=== PATIENT | male | born 1945 | race Two or more races ===

== ENCOUNTER 2017-07-22 17:56 | Inpatient (IN) | payer MEDICARE, OTHER ==
[~2017-07-22] VITALS: Ht 162.6 cm; Wt 109.0 kg
[2017-07-22] MEDS ORDERED: LIDOcaine 1% 30ml vial IJ STA (20:57)
[2017-07-22] MEDS ORDERED: TETanus/Pertussis (Acell)/Diphther VAC/PF (Tdap-Adult) 0.5ml syringe IM ONE (21:00)
[2017-07-22] MEDS ORDERED: cefazolin 1gm/NS 100mL 100 ML IV STA (21:24)
[2017-07-22] MEDS ORDERED: HYDROmorphone 2mg/ml vial IV PRN ×2 (21:55→23:05)
[2017-07-23] MEDS ORDERED: bacitracin 15gm ointment TP ONE (02:25)
[2017-07-23] MEDS ORDERED: ASPI81TA46 PO (02:47)
[2017-07-23] MEDS ORDERED: AMLO2.5T2 PO (02:47)
[2017-07-23] MEDS ORDERED: ENAL5TAB77 PO (02:47)
[2017-07-23] MEDS ORDERED: ATOR40TA PO (02:47)
[2017-07-23] MEDS ORDERED: METF500T PO (02:47)
[2017-07-23] MEDS ORDERED: CLOP75TA15 PO (02:47)
[2017-07-23] MEDS ORDERED: normal saline 1000ml 1,000 ML IV SCH (02:51)
[2017-07-23] MEDS ORDERED: magnesium 2GM in 50ml NS 50 ML IV PRN (02:55)
[2017-07-23] MEDS ORDERED: morphine 2 MG/ML inj. syringe IV PRN ×2 (02:55)
[2017-07-23] MEDS ORDERED: magnesium 4gm in 100ml NS 100 ML IV PRN (02:55)
[2017-07-23] MEDS ORDERED: potassium Cl 20 mEq SR tablet PO PRN ×2 (02:55)
[2017-07-23] MEDS ORDERED: ondansetron/PF 4mg/2ml inj IV PRN (02:55)
[2017-07-23] MEDS ORDERED: magnesium Cl slow-release 64mg tablet PO PRN (02:55)
[2017-07-23] MEDS ORDERED: HYDROcodone/acetaminophen 5mg/325mg tablet PO PRN (02:55)
[2017-07-23] MEDS ORDERED: acetaminophen 325mg tablet PO PRN (02:55)
[2017-07-23] MEDS ORDERED: mag hydrox/Alum hydrox/simeth 30ml oral suspension PO PRN (02:55)
[2017-07-23] MEDS ORDERED: magnesium hydroxide 30ml (MOM) UD suspension PO PRN (02:55)
[2017-07-23] MEDS ORDERED: potassium Cl 40MEQ/NS 500ml 500 ML IV PRN ×2 (02:55)
[2017-07-23] MEDS: HYDROcodone/acetaminophen 10/325mg tab PO PRN ×2 (04:09→07:50)
[2017-07-23] MEDS ORDERED: clopidogrel 75mg tablet PO SCH (08:00)
[2017-07-23] MEDS ORDERED: metFORMIN 500mg tablet PO SCH (08:00)
[2017-07-23] MEDS ORDERED: aspirin 81mg tablet.DR PO SCH (08:00)
[2017-07-23] MEDS ORDERED: lisinopril 5mg tablet PO SCH (08:00)
[2017-07-23] MEDS ORDERED: atorvastatin 20mg tablet PO SCH (08:00)
[2017-07-23] MEDS ORDERED: ENALAPRIL MALEATE PO SCH (08:00)
[2017-07-23] MEDS ORDERED: K and/or MAG REPLACEMENT MC SCH (08:00)
[2017-07-23] MEDS ORDERED: amLODIPine 5mg tablet PO SCH (08:00)
[2017-07-23] MEDS ORDERED: cephalexin 250mg capsule PO SCH (08:00)
[2017-07-23] MEDS ORDERED: CEPH-572 PO (09:45)
[2017-07-23] MEDS ORDERED: HYDR-3965 PO (09:45)
[2017-07-23 10:15] VITALS: BP 161/83
[2017-07-23] MEDS ORDERED: temazepam 15mg capsule PO PRN (21:00)
== END 2017-07-23 10:21 | disposition home or self-care (01) | DRG 982 ==
LOC: ER 17:56 → ED HOLD 07-23 02:51
PROVIDERS: ADMIT Internal Medicine; ATTEND Internal Medicine
PROC: 0XQN0ZZ Repair Right Index Finger, Open Approach (ICD-10-PCS; principal; 2017-07-22)
PROC: 2W3JX1Z Immobilization of Right Finger using Splint (ICD-10-PCS; 2017-07-22)
DX: S61.210A Laceration without foreign body of right index finger without damage to nail, initial encounter (principal); Z68.41 Body mass index [BMI] 40.0-44.9, adult; E11.9 Type 2 diabetes mellitus without complications; E66.01 Morbid (severe) obesity due to excess calories; F03.90 Unspecified dementia, unspecified severity, without behavioral disturbance, psychotic disturbance, mood disturbance, and anxiety; Y28.8XXA Contact with other sharp object, undetermined intent, initial encounter; I10 Essential (primary) hypertension; Z79.02 Long term (current) use of antithrombotics/antiplatelets; Z79.82 Long term (current) use of aspirin; Z79.899 Other long term (current) drug therapy; Z86.73 Personal history of transient ischemic attack (TIA), and cerebral infarction without residual deficits; Z87.891 Personal history of nicotine dependence; Y93.89 Activity, other specified; Y92.89 Other specified places as the place of occurrence of the external cause; Y99.8 Other external cause status
CPT/HCPCS: 12002; 36415; 73140; 83036; 96365; 96375; 96376; 99285; A6449; J0690; J1170; J3490; J7030

== ENCOUNTER 2019-02-26 13:47 | Emergency (ER) | payer MEDICARE, OTHER ==
[~2019-02-26] VITALS: Ht 162.6 cm; Wt 99.8 kg
[~2019-02-26 13:47] MED LIST: AMLO2.5T2 PO; ASPI81TA44 PO; ATOR40TA PO; CLOP75TA15 PO; ENAL5TAB77 PO; METF500T PO
--- NOTE | 2019-02-26 13:55 | NUR ---
RECEIVED VO FROM DR. HERNANDEZ FOR HAND AND WRIST X-RAY OF LEFT SIDE WELL ORDER FOR TYLENOL 650MG PO X 1. RECEIVED VO PT NOT REQUIRED TO HAVE CT OF HEAD.
--- NOTE | 2019-02-26 13:57 | NUR ---
blade boner Fay aware of trauma status as pt had a fall and is on plavix.
[2019-02-26] MEDS ORDERED: acetaminophen 325mg tablet PO ONE (14:05)
--- NOTE | 2019-02-26 14:34 | NUR ---
DR HERNANDEZ AT [facility] FOR EVALUTION AND CALLED OFF TRAUMA ALERT
[2019-02-26] MEDS ORDERED: HYDR-3965 PO (14:43)
[2019-02-26] MEDS ORDERED: ONDA4TAB6 PO (14:43)
[2019-02-26 15:42] VITALS: BP 132/72
== END 2019-02-26 15:43 | disposition home or self-care (01) ==
LOC: ER 13:48
DX: S52.592A Other fractures of lower end of left radius, initial encounter for closed fracture (principal); I10 Essential (primary) hypertension; E11.9 Type 2 diabetes mellitus without complications; Z79.82 Long term (current) use of aspirin; Z79.84 Long term (current) use of oral hypoglycemic drugs; Z79.899 Other long term (current) drug therapy; Z86.73 Personal history of transient ischemic attack (TIA), and cerebral infarction without residual deficits; W18.39XA Other fall on same level, initial encounter; Y93.89 Activity, other specified; Y92.89 Other specified places as the place of occurrence of the external cause; Y99.8 Other external cause status
CPT/HCPCS: 29125; 73110; 73130; 99284

== ENCOUNTER 2019-05-22 18:40 | Emergency (ER) | payer MEDICARE, OTHER ==
[~2019-05-22] VITALS: Ht 165.1 cm; Wt 95.5 kg
[~2019-05-22 18:40] MED LIST changes: +ONDA4TAB6 PO
[2019-05-22 19:22] LABS: BASOPHILS # (AUTO) 0.1 X10'3 (0-0.2); BASOPHILS % (AUTO) 1.1 % (0-1); EOSINOPHILS # (AUTO) 0.3 X10'3 (0-0.9); EOSINOPHILS % (AUTO) 3.4 % (0-6); HEMATOCRIT 41.1 % (42.0-52.0); HEMOGLOBIN 14.7 g/dl (14.0-17.9); LYMPHOCYTES # (AUTO) 2.1 X10'3 (1.1-4.8); LYMPHOCYTES % (AUTO) 23.9 % (21-51); MEAN CORPUSCULAR HEMOGLOBIN 29.9 PG (27.0-31.0); MEAN CORPUSCULAR HGB CONC 35.6 g/dL (33.0-36.5); MEAN CORPUSCULAR VOLUME 83.9 FL (78-98); MEAN PLATELET VOLUME 7.5 FL (7.4-10.4); MONOCYTES # (AUTO) 0.7 X10'3 (0-0.9); MONOCYTES % (AUTO) 7.9 % (2-12); NEUTROPHILS # (AUTO) 5.7 X10'3 (1.8-7.7); NEUTROPHILS % (AUTO) 63.7 % (42-75); PLATELET COUNT 292 X10'3 (140-440); RED CELL DISTRIBUTION WIDTH 14.8 % (11.5-14.5); WHITE BLOOD COUNT 8.9 X10'3 (4.5-11.0)
[2019-05-22 19:27] LABS: ALANINE AMINOTRANSFERASE 18 U/L (12-78); ALBUMIN 3.6 G/DL (3.4-5.0); ALBUMIN/GLOBULIN RATIO 0.8 (1.1-1.5); ALKALINE PHOSPHATASE 106 IU/L (46-116); ANION GAP 12 (8-16); ASPARTATE AMINO TRANSFERASE 16 U/L (10-37); BLOOD UREA NITROGEN 18 MG/DL (7-18); BUN/CREATININE RATIO 13.6 (5.4-32.0); CALCIUM 8.9 MG/DL (8.5-10.1); CHLORIDE 98 MMOL/L (99-107); CREATININE 1.32 MG/DL (0.60-1.10); GLUCOSE 183 MG/DL (70-104); SODIUM 139 MMOL/L (135-145); TOTAL CARBON DIOXIDE 29.4 MMOL/L (24-32); TOTAL PROTEIN 8.1 G/DL (6.4-8.2); eGFR 53 ML/MIN
[2019-05-22 19:32] LABS: POTASSIUM 2.6 MMOL/L (3.5-5.1)
--- NOTE | 2019-05-22 19:40 | NUR ---
Patient placed in room, changed into gown and placed on monitor. Patient and updated on POC.
[2019-05-22] MEDS ORDERED: potassium Cl 10 mEq/100mL bag IV ONE (19:45)
[2019-05-22] MEDS ORDERED: magnesium 2GM in 50ml NS 50 ML IV ONE (19:45)
[2019-05-22] MEDS ORDERED: potassium Cl 20 mEq SR tablet PO ONE (19:45)
[2019-05-22] MEDS ORDERED: POTA20TA19 PO (19:47)
[2019-05-22 21:20] VITALS: BP 135/89
== END 2019-05-22 21:22 | disposition home or self-care (01) ==
LOC: ER 18:41
DX: R79.9 Abnormal finding of blood chemistry, unspecified (principal); R53.83 Other fatigue; I10 Essential (primary) hypertension; E11.9 Type 2 diabetes mellitus without complications; F10.99 Alcohol use, unspecified with unspecified alcohol-induced disorder; Z79.82 Long term (current) use of aspirin; Z79.899 Other long term (current) drug therapy; Z79.84 Long term (current) use of oral hypoglycemic drugs; Z86.73 Personal history of transient ischemic attack (TIA), and cerebral infarction without residual deficits; Y90.9 Presence of alcohol in blood, level not specified
CPT/HCPCS: 36415; 80053; 85025; 96365; 96375; 99283; J3475; J3480